=== PATIENT | male | born 1960 | race Caucasian/White ===

== ENCOUNTER → 2019-06-09 10:11 | Outpatient (CLI) | payer OTHER ==
[2019-06-11 10:11] LABS: TESTOSTERONE - FREE 8.7 pg/mL (7.2-24.0); TESTOSTERONE - SERUM 422 ng/dL (264-916)
== END | disposition home or self-care (01) ==
LOC: D.LAB 10:11
PROVIDERS: ATTEND Urology
DX: E29.1 Testicular hypofunction (principal)